=== PATIENT | female | born 1975 | race Caucasian/White ===

== ENCOUNTER 2017-01-29 20:53 | Emergency (ER) | payer OTHER ==
[~2017-01-29] VITALS: Ht 175.3 cm; Wt 106.2 kg
[~2017-01-29 20:53] MED LIST: LISINOPRIL10 MG PO; NAPROSYN500 MG PO; PENICILLN VK500 MG PO
[2017-01-29 22:00] LABS: HEMATOCRIT 44.1 % (37.0-47.0); HEMOGLOBIN 14.8 g/dl (12.0-16.0); IMMATURE GRANULOCYTES 0.4 % (0.0-1.0); MEAN CELL VOLUME 83.7 fL CALC (80.0-100.0); MEAN CORPUSCULAR HGB 28.1 pG CALC (26.0-32.0); MEAN CORPUSCULAR HGB CONC 33.6 g/L CALC (32.0-36.0); NEUT# 7.44 thou/uL (2.00-7.15); RED BLOOD COUNT 5.27 mill/uL (4.20-5.60); RED CELL DISTRI WIDTH 14.3 % (11.5-15.5)
[2017-01-29 22:10] LABS: ALBUMIN 4.1 g/dL (3.2-5.0); ALKALINE PHOSPHATASE 96 u/l (38-126); ANION GAP 15 (6-22 (CALC)); BILIRUBIN, TOTAL 0.2 mg/dL (0.0-1.4); BUN 13 mg/dL (7-17); BUN/CREATININE RATIO 16 (12-20 (CALC)); CALCIUM 9.3 mg/dL (8.4-10.2); CARBON DIOXIDE 28 mmol/l (22-30); CHLORIDE 101 mmol/l (95-108); CREATININE 0.8 mg/dL (0.5-1.0); GFR > 60 ML/MIN (>=60 (CALC)); GFR FOR AFR.AMER. > 60 ML/MIN (>=60 (CALC)); GLUCOSE 107 mg/dL (65-105); POTASSIUM 4.6 mmol/l (3.5-5.1); SGOT/AST 20 u/l (14-36); SGPT/ALT 33 u/l (9-52); SODIUM 139 mmol/l (137-146); TOTAL PROTEIN 7.6 g/dL (6.3-8.2)
[2017-01-29 22:22] LABS: MYOGLOBIN 27 ng/mL (0 - 62)
[2017-01-29] MEDS ORDERED: LISINOPRIL10 MG PO (22:39)
[2017-01-29] MEDS ORDERED: FIORICET PO (22:39)
[2017-01-29 22:58] VITALS: BP 142/86
== END 2017-01-29 23:10 | disposition home or self-care (01) | DRG 103 ==
LOC: ED 20:53
DX: G43.909 Migraine, unspecified, not intractable, without status migrainosus (principal); I10 Essential (primary) hypertension; F31.9 Bipolar disorder, unspecified; J45.909 Unspecified asthma, uncomplicated; Z91.14 Patient's other noncompliance with medication regimen

== ENCOUNTER 2017-09-17 17:29 | Emergency (ER) | payer OTHER ==
[~2017-09-17] VITALS: Ht 175.3 cm; Wt 105.8 kg
[~2017-09-17 17:29] MED LIST changes: +FIORICET PO
[2017-09-17] MEDS ORDERED: ERYTHROMYCIN O3.5 GM OS (18:19)
[2017-09-17] MEDS ORDERED: KEFLEX500 MG PO (18:19)
[2017-09-17 18:28] VITALS: BP 140/80
== END 2017-09-17 18:36 | disposition home or self-care (01) | DRG 125 ==
LOC: ED 17:29
DX: H00.025 Hordeolum internum left lower eyelid (principal)

== ENCOUNTER 2017-12-28 12:44 | Emergency (ER) | payer OTHER ==
[~2017-12-28] VITALS: Ht 175.3 cm; Wt 90.0 kg
[~2017-12-28 12:44] MED LIST changes: +ERYTHROMYCIN O3.5 GM OS; +KEFLEX500 MG PO
[2017-12-28] MEDS ORDERED: LISINOPRIL5 MG PO (13:07)
[2017-12-28 13:30] LABS: HEMATOCRIT 44.8 % (37.0-47.0); HEMOGLOBIN 14.9 g/dl (12.0-16.0); IMMATURE GRANULOCYTES 0.4 % (0.0-1.0); MEAN CELL VOLUME 86.2 fL CALC (80.0-100.0); MEAN CORPUSCULAR HGB 28.7 pG CALC (26.0-32.0); MEAN CORPUSCULAR HGB CONC 33.3 g/L CALC (32.0-36.0); NEUT# 4.64 thou/uL (2.00-7.15); RED BLOOD COUNT 5.2 mill/uL (4.20-5.60); RED CELL DISTRI WIDTH 13.7 % (11.5-15.5)
[2017-12-28 13:38] LABS: ALBUMIN 4.5 g/dL (3.2-5.0); ALKALINE PHOSPHATASE 113 u/l (38-126); BILIRUBIN, TOTAL 0.9 mg/dL (0.0-1.4); BUN 22 mg/dL (7-17); BUN/CREATININE RATIO 21 (12-20 (CALC)); CARBON DIOXIDE 22 mmol/l (22-30); CHLORIDE 102 mmol/l (95-108); GFR 60 ML/MIN (>=60 (CALC)); GFR FOR AFR.AMER. > 60 ML/MIN (>=60 (CALC)); SGPT/ALT 36 u/l (9-52); SODIUM 138 mmol/l (137-146); TOTAL PROTEIN 9.1 g/dL (6.3-8.2)
[2017-12-28 13:44] LABS: ANION GAP 19 (6-22 (CALC)); POTASSIUM 5.2 mmol/l (3.5-5.1); SGOT/AST 51 u/l (14-36)
[2017-12-28 13:50] LABS: MYOGLOBIN 30 ng/mL (0 - 62)
[2017-12-28 14:58] LABS: URINE BILIRUBIN - DIPSTICK NEGATIVE (NEGATIVE); URINE BLOOD DIPSTICK MODERATE (NEGATIVE); URINE COLOR YELLOW; URINE GLUCOSE - DIPSTICK NEGATIVE (NEGATIVE); URINE KETONE NEGATIVE (NEGATIVE); URINE NITRITE - DIPSTICK NEGATIVE (Negative); URINE PH 5.5 (4.5-8.0); URINE PROTEIN - DIPSTICK NEGATIVE (NEG-TRACE); URINE SPECIFIC GRAVITY >=1.030; URINE UROBILINOGEN - DIPSTICK 0.2 E.U./dL (0.2)
[2017-12-28 15:09] LABS: URINE LEUK ESTERASE SMALL (NEGATIVE)
[2017-12-28 15:10] LABS: COCAINE NEGATIVE (NEGATIVE); TETRAHYDROCANNABIONOL NEGATIVE (NEGATIVE); URINE CLARITY CLOUDY
[2017-12-28 15:11] LABS: BARBITURATES NEGATIVE (NEGATIVE); METHADONE NEGATIVE (NEGATIVE); OXCYCODONE NEGATIVE (NEGATIVE); TRICYLIC ANTIDEPRESSANTS NEGATIVE (NEGATIVE)
[2017-12-28 15:26] LABS: URINE BACTERIA RARE hpf; URINE SQUAMOUS EPITHELIAL CELL FEW EPI/hpf (0-FEW)
[2017-12-28 15:44] VITALS: BP 123/66
== END 2017-12-28 15:42 | disposition home or self-care (01) | DRG 607 ==
LOC: ED 12:44
PROVIDERS: Emergency Medicine
DX: R61 Generalized hyperhidrosis (principal); F17.210 Nicotine dependence, cigarettes, uncomplicated; I10 Essential (primary) hypertension; R42 Dizziness and giddiness; R11.0 Nausea; R20.2 Paresthesia of skin; R53.1 Weakness

== ENCOUNTER 2019-02-20 20:31 | Emergency (ER) | payer OTHER ==
[~2019-02-20] VITALS: Ht 175.3 cm; Wt 104.5 kg
[~2019-02-20 20:31] MED LIST changes: +LISINOPRIL5 MG PO
[2019-02-20] MEDS ORDERED: IBUPROFEN600 MG PO (20:53)
[2019-02-20] MEDS ORDERED: AMOXICILLIN500 MG PO (20:53)
[2019-02-20] MEDS ORDERED: PERCOCET 5/325M1 TAB PO (20:53)
[2019-02-20 21:26] VITALS: BP 111/76
== END 2019-02-20 21:26 | disposition home or self-care (01) ==
LOC: ED 20:31
DX: K04.7 Periapical abscess without sinus (principal); K03.81 Cracked tooth; I10 Essential (primary) hypertension; F17.210 Nicotine dependence, cigarettes, uncomplicated

== ENCOUNTER 2019-03-28 22:52 | Emergency (ER) | payer OTHER ==
[~2019-03-28] VITALS: Ht 175.3 cm; Wt 113.0 kg
[~2019-03-28 22:52] MED LIST changes: +AMOXICILLIN500 MG PO; +IBUPROFEN600 MG PO; +PERCOCET 5/325M1 TAB PO
[2019-03-28] MEDS ORDERED: MOTRIN800 MG PO (23:07)
[2019-03-28] MEDS ORDERED: AMOXICILLIN500 MG PO (23:07)
[2019-03-28] MEDS ORDERED: TRAMADOL HCL50 MG PO (23:07)
[2019-03-28 23:36] VITALS: BP 153/68
== END 2019-03-28 23:32 | disposition home or self-care (01) ==
LOC: ED 22:52
DX: K02.9 Dental caries, unspecified (principal); K04.7 Periapical abscess without sinus; I10 Essential (primary) hypertension; F17.200 Nicotine dependence, unspecified, uncomplicated

== ENCOUNTER 2019-07-18 20:46 | Emergency (ER) | payer OTHER ==
[~2019-07-18] VITALS: Ht 175.3 cm; Wt 120.0 kg
[~2019-07-18 20:46] MED LIST changes: +MOTRIN800 MG PO; +TRAMADOL HCL50 MG PO
[2019-07-18 21:20] LABS: HEMATOCRIT 39.6 % (37.0-47.0); HEMOGLOBIN 13.1 g/dl (12.0-16.0); IMMATURE GRANULOCYTES 0.5 % (0.0-5.0); MEAN CELL VOLUME 85.9 fL CALC (80.0-100.0); MEAN CORPUSCULAR HGB 28.4 pG CALC (26.0-32.0); MEAN CORPUSCULAR HGB CONC 33.1 g/L CALC (32.0-36.0); NEUT# 7.03 thou/uL (2.00-7.15); RED BLOOD COUNT 4.61 mill/uL (4.20-5.60); RED CELL DISTRI WIDTH 13.5 % (11.5-15.5)
[2019-07-18 21:37] LABS: ALBUMIN 3.8 g/dL (3.2-5.0); CREATININE 1.7 mg/dL (0.5-1.0); TOTAL PROTEIN 7.5 g/dL (6.3-8.2)
[2019-07-18 21:38] LABS: D-DIMER 0.58 mg/L (0.19-0.60); INTERNATIONAL NORMALIZED RATIO 0.9 RATIO (0.7-1.3); PROTHROMBIN TIME 9.6 SECONDS (9.0-12.5)
[2019-07-18 21:39] LABS: BILIRUBIN, TOTAL 0.3 mg/dL (0.0-1.4); POTASSIUM 4.1 mmol/l (3.5-5.1)
[2019-07-18 22:13] LABS: HCG SERUM/URINE (NEG/POS) NEGATIVE (NEGATIVE)
[2019-07-18] MEDS ORDERED: VENTOLIN HFA IN (23:04)
[2019-07-18] MEDS ORDERED: PREDNISONE50 MG PO (23:04)
[2019-07-18 23:45] VITALS: BP 110/63
== END 2019-07-19 00:01 | disposition home or self-care (01) ==
LOC: ED 20:46
PROVIDERS: Family Medicine
DX: B34.9 Viral infection, unspecified (principal); J45.901 Unspecified asthma with (acute) exacerbation; E86.0 Dehydration; I10 Essential (primary) hypertension; F17.200 Nicotine dependence, unspecified, uncomplicated

== ENCOUNTER 2019-07-26 12:43 | Emergency (ER) | payer OTHER ==
[~2019-07-26 12:43] MED LIST changes: +PREDNISONE50 MG PO; +VENTOLIN HFA IN
[2019-07-26] MEDS ORDERED: ALBUTEROL SUL0.083 % IN (14:50)
[2019-07-26] MEDS ORDERED: LORTAB 1010 MG PO (18:40)
== END 2019-07-26 13:01 | disposition left against medical advice (07) | DRG 951 ==
LOC: ED 12:43 → LWOBS 13:00
DX: Z53.21 Procedure and treatment not carried out due to patient leaving prior to being seen by health care provider (principal)

== ENCOUNTER 2019-07-26 14:14 | Emergency (ER) | payer OTHER ==
[~2019-07-26] VITALS: Ht 172.7 cm; Wt 113.0 kg
[2019-07-26] MEDS ORDERED: ALBUTEROL SUL0.083 % IN (14:50)
[2019-07-26 15:48] LABS: HEMATOCRIT 34.3 % (37.0-47.0); HEMOGLOBIN 11.4 g/dl (12.0-16.0); IMMATURE GRANULOCYTES 0.9 % (0.0-5.0); MEAN CORPUSCULAR HGB 28.6 pG CALC (26.0-32.0); MEAN CORPUSCULAR HGB CONC 33.2 g/L CALC (32.0-36.0); NEUT# 8.55 thou/uL (2.00-7.15); RED BLOOD COUNT 3.99 mill/uL (4.20-5.60); RED CELL DISTRI WIDTH 13.4 % (11.5-15.5)
[2019-07-26 16:05] LABS: ALBUMIN 3.5 g/dL (3.2-5.0); BILIRUBIN, TOTAL 0.2 mg/dL (0.0-1.4); CREATININE 1.2 mg/dL (0.5-1.0); POTASSIUM 3.8 mmol/l (3.5-5.1); TOTAL PROTEIN 7.1 g/dL (6.3-8.2)
[2019-07-26] MEDS ORDERED: LORTAB 1010 MG PO (18:40)
[2019-07-26 19:09] VITALS: BP 127/58
== END 2019-07-26 19:07 | disposition home or self-care (01) ==
LOC: ED 14:14
PROVIDERS: Emergency Medicine
DX: G62.9 Polyneuropathy, unspecified (principal); I10 Essential (primary) hypertension; F17.210 Nicotine dependence, cigarettes, uncomplicated

== ENCOUNTER 2019-08-07 | Emergency (ER) | payer OTHER ==
[~2019-08-07] MED LIST changes: +ALBUTEROL SUL0.083 % IN; +LORTAB 1010 MG PO
== END 2019-08-07 14:22 | disposition left against medical advice (07) ==
DX: Z91.19 Patient's noncompliance with other medical treatment and regimen (principal)

== ENCOUNTER 2019-08-31 | Emergency (ER) | payer OTHER ==
[2019-08-31 17:02] LABS: IMMATURE GRANULOCYTES 1.1 % (0.0-5.0); MEAN CORPUSCULAR HGB 28.2 pG CALC (26.0-32.0); MEAN CORPUSCULAR HGB CONC 32.4 g/L CALC (32.0-36.0); NEUT# 8.34 thou/uL (2.00-7.15); RED BLOOD COUNT 3.16 mill/uL (4.20-5.60); RED CELL DISTRI WIDTH 13.5 % (11.5-15.5)
[2019-08-31 17:20] LABS: ANION GAP 17 (6-22 (CALC)); BUN 11 mg/dL (7-17); BUN/CREATININE RATIO 15 (12-20 (CALC)); CARBON DIOXIDE 24 mmol/l (22-30); CHLORIDE 104 mmol/l (95-108); CREATININE 0.8 mg/dL (0.5-1.0); GFR > 60 ML/MIN (>=60 (CALC)); GFR FOR AFR.AMER. > 60 ML/MIN (>=60 (CALC)); POTASSIUM 4.5 mmol/l (3.5-5.1); SODIUM 140 mmol/l (137-146)
[2019-08-31 17:33] LABS: HEMATOCRIT 27.5 % (37.0-47.0); HEMOGLOBIN 8.9 g/dl (12.0-16.0)
== END 2019-08-31 17:18 | disposition left against medical advice (07) ==
PROVIDERS: Family Medicine
DX: R07.9 Chest pain, unspecified (principal); I10 Essential (primary) hypertension; F17.200 Nicotine dependence, unspecified, uncomplicated; F31.9 Bipolar disorder, unspecified; Z89.511 Acquired absence of right leg below knee; Z91.19 Patient's noncompliance with other medical treatment and regimen

== ENCOUNTER 2019-09-07 | Emergency (ER) | payer OTHER ==
[2019-09-07 11:45] LABS: HEMOGLOBIN 9.7 g/dl (12.0-16.0); IMMATURE GRANULOCYTES 0.5 % (0.0-5.0); MEAN CELL VOLUME 90.4 fL CALC (80.0-100.0); MEAN CORPUSCULAR HGB 27.4 pG CALC (26.0-32.0); MEAN CORPUSCULAR HGB CONC 30.3 g/L CALC (32.0-36.0); NEUT# 5.44 thou/uL (2.00-7.15); RED BLOOD COUNT 3.54 mill/uL (4.20-5.60); RED CELL DISTRI WIDTH 13.7 % (11.5-15.5)
[2019-09-07] MEDS ORDERED: ALPRAZOLAM1 MG PO (12:23)
[2019-09-07] MEDS ORDERED: PAROXETINE HCL20 MG PO (12:23)
[2019-09-07] MEDS ORDERED: CYCLOBENZAPR10 MG PO (12:24)
[2019-09-07] MEDS ORDERED: OXYCODONE HCL10 MG PO (12:24)
[2019-09-07] MEDS ORDERED: HYDROXYZ HCL25 MG PO (12:25)
[2019-09-07] MEDS ORDERED: LISINOP/HCTZ1 TA2 PO (12:26)
[2019-09-07 12:47] LABS: ALBUMIN 3.6 g/dL (3.2-5.0); ALKALINE PHOSPHATASE 116 u/l (38-126); BUN 22 mg/dL (7-17); BUN/CREATININE RATIO 22 (12-20 (CALC)); CHLORIDE 110 mmol/l (95-108); GFR 60 ML/MIN (>=60 (CALC)); GFR FOR AFR.AMER. > 60 ML/MIN (>=60 (CALC)); SGOT/AST 36 u/l (14-36); SODIUM 138 mmol/l (137-146); TOTAL PROTEIN 7.2 g/dL (6.3-8.2)
[2019-09-07 12:49] LABS: ANION GAP 17 (6-22 (CALC)); BILIRUBIN, TOTAL 0.5 mg/dL (0.0-1.4); CARBON DIOXIDE 16 mmol/l (22-30); POTASSIUM 5.4 mmol/l (3.5-5.1)
== END 2019-09-07 17:40 | disposition home or self-care (01) ==
DX: S43.014A Anterior dislocation of right humerus, initial encounter (principal); I10 Essential (primary) hypertension; F17.200 Nicotine dependence, unspecified, uncomplicated; W05.0XXA Fall from non-moving wheelchair, initial encounter; Y93.89 Activity, other specified; Y92.029 Unspecified place in mobile home as the place of occurrence of the external cause; Z91.81 History of falling; Z89.511 Acquired absence of right leg below knee; R41.0 Disorientation, unspecified; R44.3 Hallucinations, unspecified